=== PATIENT | male | born 1945 | race Caucasian/White ===

== ENCOUNTER 2016-09-15 10:47 | Outpatient (RCR) | payer BC | END 2016-12-14 | disposition home or self-care (01) | LOC: PT | DX: M54.12 Radiculopathy, cervical region (principal) ==

== ENCOUNTER 2022-08-12 08:00 | Outpatient (RCR) | payer MEDICARE | END 2022-09-09 | disposition home or self-care (01) | LOC: PT | DX: M17.12 Unilateral primary osteoarthritis, left knee (principal) ==

== ENCOUNTER 2024-05-06 14:54 | Inpatient (IN) | payer MEDICARE, BC ==
[~2024-05-06] VITALS: Ht 177.8 cm; Wt 84.0 kg
[~2024-05-06 14:54] MED LIST: ALBUTEROL SULF6.7 GM IH; AMLODIPINE BES2.5 MG PO; CARVEDILOL12.5 MG PO; CARVEDILOL25 MG PO; CEFDINIR300 MG PO; FAMOTIDINE40 M1 PO; JANTOVEN5 MG PO; LYMEPAK100 MG PO; OLMESARTAN MEDO40 MG PO; PRAVASTATIN SOD20 MG PO; PREDNISONE10 MG PO; PREDNISONE20 M1 PO; SYMBICORT1 AE3 IH; ZITHROMAX500 M2 PO
[2024-05-06 15:51] LABS: BASO # 0.02 K/mm3 (0.02-0.10); EOS # 0.24 K/mm3 (0.04-0.40); HEMATOCRIT 52.4 % (42.0-52.0); LYMPH# 2.36 K/mm3 (1.50-4.00); MEAN CELL VOLUME 89 fl (78-100); MEAN CORPUSCULAR HEMOGLOBIN 31 pg (27-31); MEAN CORPUSCULAR HGB CONC 34 g/dL (33-37); MEAN PLATELET VOLUME 9.5 fl (7.4-10.4); MONO # 0.73 K/mm3 (0.20-0.80); PLATELET COUNT 259 K/mm3 (130-400); RED BLOOD COUNT 5.86 M/mm3 (4.20-5.60); WHITE BLOOD COUNT 7.9 K/mm3 (4.8-10.8)
[2024-05-06 15:54] LABS: URINE WBC 0 /hpf (0-3)
[2024-05-06] MEDS ORDERED: Metoprolol Tartrate 1 MG/ML 5 ML VIAL IV ONE (16:00)
[2024-05-06 16:03] LABS: ALBUMIN 3.9 g/dL (3.4-4.8); SODIUM 135 mmol/L (136-145)
[2024-05-06 16:04] LABS: CALCIUM 9.3 mg/dL (8.3-10.5)
[2024-05-06 16:08] LABS: URINE APPEARANCE SLIGHTLY CLOUDY (CLEAR); URINE COLOR AMBER (YELLOW); URINE GLUCOSE NEGATIVE (NEGATIVE); URINE KETONE NEGATIVE (NEGATIVE); URINE PROTEIN(semi-quant) NEGATIVE (NEGATIVE)
[2024-05-06 16:09] LABS: GLUCOSE 112 mg/dL (75-110); TOTAL BILIRUBIN 0.8 mg/dL (0.2-1.2); TOTAL PROTEIN 7.3 g/dL (6.2-8.1); URINE BILIRUBIN 1+ (NEGATIVE); URINE BLOOD TRACE-INTACT (NEGATIVE); URINE LEUKOCYTE ESTERASE NEGATIVE (NEGATIVE); URINE MUCUS PRESENT (NOT PRESENT); URINE NITRATE NEGATIVE (NEGATIVE)
[2024-05-06 16:11] LABS: AST-SGOT 16 U/L (5-34); CARBON DIOXIDE 16 mmol/L (23-31)
[2024-05-06 16:12] LABS: ALT/SGPT 15 U/L (0-55)
[2024-05-06 16:21] LABS: D-DIMER 0.34 mg/L FEU (0.15-0.50)
[2024-05-06 16:24] LABS: TROPONIN-I < 0.030 ng/mL (0.00-0.033)
[2024-05-06] MEDS ORDERED: NS 1,000 ML IV SCH ×2 (16:30→18:45)
[2024-05-06] MEDS ORDERED: Albuterol/Ipratropium 3 MG-0.5 MG/3 ML Neb Soln IH ONE (17:30)
[2024-05-06 18:13] VITALS: BP 163/98
[2024-05-06] MEDS ORDERED: Polyethylene Glycol 3350 Powder 17 GM PACKET PO PRN (18:30)
[2024-05-06] MEDS ORDERED: Warfarin 1 MG TAB PO SCH (18:30)
[2024-05-06] MEDS ORDERED: Ondansetron 4 MG/2 ML VIAL IV PRN (18:30)
[2024-05-06] MEDS ORDERED: Acetaminophen 500 MG TAB PO PRN (18:30)
[2024-05-06] MEDS ORDERED: Fluticasone Nasal 50 MCG/Spray 16 GM BOTTLE NS SCH (18:37)
[2024-05-06] MEDS ORDERED: Iohexol 300 - 100 ML VIAL IV ONE (19:30)
[2024-05-06] MEDS ORDERED: Albuterol/Ipratropium 3 MG-0.5 MG/3 ML Neb Soln IH PRN (19:30)
[2024-05-06] MEDS ORDERED: hydrALAZINE 20 MG/ML 1 ML VIAL IV PRN (19:45)
[2024-05-06] MEDS ORDERED: Carvedilol 6.25 MG TAB PO SCH (19:45)
[2024-05-06 19:56] VITALS: BP 167/102
[2024-05-06] MEDS ORDERED: Albuterol/Ipratropium 3 MG-0.5 MG/3 ML Neb Soln IH SCH (21:00)
[2024-05-06] MEDS ORDERED: Cetirizine 10 MG TAB PO SCH (21:00)
[2024-05-06] MEDS ORDERED: Famotidine 20 MG TAB PO SCH (21:00)
[2024-05-06] MEDS ORDERED: Pravastatin 20 MG TAB PO SCH (21:00)
[2024-05-06 23:30] VITALS: BP 167/102
[2024-05-07] VITALS (7 sets, daily range): BP systolic 130–154; BP diastolic 87–113
[2024-05-07 07:31] LABS: BASO # 0.02 K/mm3 (0.02-0.10); EOS # 0.25 K/mm3 (0.04-0.40); EOS % 4.2 % (0.0-4.0); HEMATOCRIT 44.2 % (42.0-52.0); LYMPH# 1.65 K/mm3 (1.50-4.00); MEAN CELL VOLUME 91 fl (78-100); MEAN CORPUSCULAR HEMOGLOBIN 31 pg (27-31); MEAN CORPUSCULAR HGB CONC 34 g/dL (33-37); MEAN PLATELET VOLUME 9.5 fl (7.4-10.4); MONO # 0.56 K/mm3 (0.20-0.80); NEU # 3.49 K/mm3 (1.40-6.50); PLATELET COUNT 218 K/mm3 (130-400); RED BLOOD COUNT 4.84 M/mm3 (4.20-5.60); RED CELL DISTRIBUTION WIDTH 13.2 % (11.5-14.5)
[2024-05-07 07:38] LABS: ALBUMIN 3.1 g/dL (3.4-4.8)
[2024-05-07 07:40] LABS: CALCIUM 8.4 mg/dL (8.3-10.5)
[2024-05-07 07:41] LABS: TOTAL PROTEIN 5.9 g/dL (6.2-8.1)
[2024-05-07 07:43] LABS: TOTAL BILIRUBIN 0.8 mg/dL (0.2-1.2)
[2024-05-07 07:55] LABS: HEMOGLOBIN 15.2 g/dL (13.5-18.0)
[2024-05-07 07:59] LABS: PROTHROMBIN TIME 40.2 SECONDS (9.0-12.0)
[2024-05-07] MEDS ORDERED: amLODIPine 5 MG TAB PO SCH (10:22)
[2024-05-08 03:27] VITALS: BP 135/81
[2024-05-08 07:10] VITALS: BP 151/88
[2024-05-08 11:00] VITALS: BP 142/107
[2024-05-08 15:27] VITALS: BP 141/85
[2024-05-08 19:00] VITALS: BP 160/91
[2024-05-08] MEDS ORDERED: methylPREDNISolone Sod Succ 125 MG/2 ML VIAL IV SCH (21:00)
[2024-05-08 23:26] VITALS: BP 129/68
[2024-05-09 03:25] VITALS: BP 139/72
[2024-05-09 08:21] VITALS: BP 139/72
[2024-05-09] MEDS ORDERED: PREDNISONE20 MG PO (08:42)
[2024-05-10] MEDS ORDERED: Warfarin 5 MG TAB PO SCH (17:00)
== END 2024-05-09 09:24 | disposition home or self-care (01) | DRG 641 ==
LOC: ED 14:54 → MED/SURG 17:58
PROVIDERS: Family Medicine; ADMIT Family Medicine
DX: E87.1 Hypo-osmolality and hyponatremia (principal); Q21.10 Atrial septal defect, unspecified; I10 Essential (primary) hypertension; I48.91 Unspecified atrial fibrillation; E78.5 Hyperlipidemia, unspecified; Z79.01 Long term (current) use of anticoagulants; Z96.652 Presence of left artificial knee joint
CPT/HCPCS: J2919; J7030; Q9967

== ENCOUNTER → 2024-05-13 | Outpatient (CLI) | payer MEDICARE, BC ==
[~2024-05-13] MED LIST changes: +Gadoterate 20 ML VIAL IV ONE; +PREDNISONE20 MG PO
== END ==
LOC: RAD 13:36
DX: G31.9 Degenerative disease of nervous system, unspecified (principal); I63.81 Other cerebral infarction due to occlusion or stenosis of small artery; J32.0 Chronic maxillary sinusitis
CPT/HCPCS: A9575